=== PATIENT | male | born 2000 | race Caucasian/White ===

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

== ENCOUNTER 2022-02-17 14:39 | Outpatient (CLI) | payer OTHER, SELFPAY ==
--- NOTE | 2022-03-05 13:57 | WPDPFTINT ---
PFT Procedure Performed PFT Procedure Performed Spirometry with Pre/Post Bronchodilator Plethysmography (Lung Vol) Diffusing Cap (DLCO) Flow Vol Loop PFT Interpretation DOS: 02/17/2022 REQUESTING: Amelia Goss NP REASON FOR TESTING: Moderate persistent asthma PULMONARY FUNCTION TESTS Results are reliable and reproducible. Spirometry: Pre-bronchodilator FEV1 is 79% predicted, 3.9 L, mildly reduced. Pre-bronchodilator FVC is 86%, 5 L, normal. FEV1/FVC is 78%, normal. WRE60-38% is 68% predicted, 3.58 L, within normal range. After bronchodilator administration, FEV1 increases by 3%, 81% predicted, 4.01 L, normal. FVC increases 2%, 88% predicted, 5.11 L. Normal. FEV1/FVC is 78%, no change. EOX03-72 increases by 4%, 70% predicted, 3.72 L normal. Lung volumes: Total lung capacity is 109% predicted, 6.27 L normal. FRC is 107% predicted, 2.9 L normal. ERV 55%, 1.08 L, below normal. The BMI is 24.16, normal. Residual volume 85%, 0.99 L. RV/TLC is 16%. Airway resistance is 300%, 3.19 cmH20/L/sec, increased. Diffusion: DLCO 94% predicted, 36.2 mL/minute/mmHg. DLCO/VA is 112%, 6.03 mL/min/mmHg. These are normal values. Flow volume loop: Normal expiratory limb. There is flattening of the inspiratory limb which is reproducible. This is consistent with a variable extrathoracic obstruction. IMPRESSION: Normal spirometry, normal lung volumes and normal diffusion. Most significant finding is a flattened inspiratory limb which suggests a dynamic extrathoracic obstruction such as vocal cord paralysis, upper airway mobile tumor, or extrathoracic tracheomalacia. Consider dynamic neck CT scan or ENT evaluation. Estela Valdez MD
== END 2022-02-17 14:40 | disposition home or self-care (01) ==
LOC: ANHPFT 14:44
PROVIDERS: PCP Internal Medicine; Visit Provider Nurse Practitioner
DX: J45.50 Severe persistent asthma, uncomplicated (principal)
CPT/HCPCS: 94060; 94726; 94729

== ENCOUNTER 2023-02-08 09:36 | Emergency (ER) | payer OTHER, SELFPAY ==
--- NOTE | ~2023-02-08 | XR_ITS ---
EXAMINATION: XR chest 2V DATE: 02/08/2023 10:38 INDICATION: Shortness of breath and asthma TECHNIQUE: Frontal and lateral views of the chest are obtained COMPARISON: 06/05/2007 FINDINGS: The lungs are free of acute opacities. No pleural effusion or pneumothorax. The cardiomedia stinal silhouette is normal. The visualized bones and soft tissues are unremarkable. IMPRESSION: 1. No acute cardiopulmonary abnormality. Reviewed, dictated and finalized at location A.
[2023-02-08 09:58] VITALS: BP 142/94; PULSE 82; RESP 16; TEMP 36.1; O2SAT 98
--- NOTE | 2023-02-08 10:25 | ED.URI ---
HPI - URI/Sore Throat General Chief Complaint: Upper Respiratory Infection Stated Complaint: SOB/WHEEZING/COUGH/ASHTMA Time Seen by Provider: 02/08/23 10:25 Source: patient, RN notes reviewed and old records reviewed Mode of arrival: ambulatory Limitations: no limitations History of Present Illness HPI Narrative: 22-year-old male presents to the [facility] with complaints of cough, shortness of breath, wheezing. Has a history of asthma. Symptoms x2 days. Symptoms got worse yesterday. Has a history of asthma and has been using his albuterol inhaler ?way too much. ? Related Data Allergies Allergy/AdvReac Type Severity Reaction Status Date / Time No Known Allergies Allergy Verified 02/08/23 11:33 Review of Systems Review of Systems: All systems reviewed & are unremarkable except as noted in HPI and below Constitutional: Constitutional: Reports no additional constitutional complaints Eyes: Eyes: Reports no additional eye complaints ENT: Reports system reviewed and no additional complaints, except as documented Cardiovascular: Cardiovascular: Reports no additional cardiovascular complaints, Denies chest pain and Denies dyspnea Respiratory: Respiratory: Reports as per HPI, Reports chest congestion, Reports cough and Reports dyspnea Gastrointestinal: Gastrointestinal: Reports no additional gastrointestinal complaints, Denies abdominal pain, Denies nausea and Denies vomiting Musculoskeletal: Musculoskeletal: Reports no additional musculoskeletal complaints Integumentary/Breasts: Skin/Breast: Reports system reviewed and no additional complaints, except as docu Neurologic: Reports system reviewed and no additional complaints, except as documented Psychiatric: Psychiatric: Reports no additional psychiatric complaints Allergic/Immunologic: Allergic/Immunologic: Reports no additional allergic/immunologic complaints [facility] Past Medical History Medical History Asthma Asthma History of COVID-19 Social History Social History Smoking status: Never smoker Alcohol intake: current Substance use: never Lack of Transportation: No Lack of Food: Never True Current Housing: I Have Housing Concerned About Future Housing: No Difficulty Paying Gas/Electric Bills: No Difficulty Paying for Meds: No Currently Unemployed: No Education: Trade/Vocational Certificate Difficulty w/ Childcare or Family Care: No Living arrangements: with family Occupation/Education: student Additional occupation/education comments: Senior at [employer] Comments At the time of my signature, I reviewed and agree with the nursing past medical, surgical, social, and family history. There is no relevant family history pertinent to the patient complaint. Exam Const: General: cooperative, healthy appearing, comfortable, no acute distress, well developed, alert and well nourished Nutritional Appearance: well nourished Orientation/consciousness: patient oriented x3 Limitations: no limitations HENMT: Head: normal to inspection Ears: hearing grossly normal bilaterally and external ears normal Face/Nose/Sinus: Normal external nose present, Normal nares present, Normal nasal mucous membranes and turbinates present and normal facial exam Face and sinus: normal facial exam Mouth: Yes Normal oral and palatal mucosa present, Yes lip normal and Yes moist mucous membranes Throat: posterior oropharynx normal and uvula midline Eyes: General: appearance normal, both eyes and all related structures Alignment and Position: alignment normal Periorbital: periorbital findings normal Pupils: Equal, round and reactive pupils present EOM: EOMs intact bilaterally Neck: Neck: normal visual inspection, full ROM, no lymphadenopathy and no meningeal signs Chest: Chest palpation & inspection: normal inspection of the chest Resp: Eff
[2023-02-08] MEDS: ALBUTEROL SULFATE NEB 2.5 MG/3 ML INH INHALATION (10:44)
[2023-02-08] MEDS: IPRATROPIUM BR 0.02% INH SOLN 0.5 MG/2.5 ML VIAL INHALATION (10:45)
== END 2023-02-08 11:40 | disposition home or self-care (01) ==
PROVIDERS: Emergency Provider Nurse Practitioner; PCP Nurse Practitioner
DX: J45.909 Unspecified asthma, uncomplicated (principal); Z86.16 Personal history of COVID-19
CPT/HCPCS: 71046; 94640; 99213; G0463

== ENCOUNTER 2023-02-09 00:02 | Emergency (ER) | payer OTHER, SELFPAY ==
--- NOTE | ~2023-02-09 | XR_ITS ---
Clinical Indication: Dyspnea PA and lateral views of the chest: Comparison: 02/08/2023 Findings: There is focal retrocardiac airspace disease. Right lung clear.. Cardiomediastinal silhoue tte is within normal limits. Bones and soft tissues are unremarkable. Impression: Focal retrocardiac airspace disease could reflect left lower lobe atelectasis versus focal pneumonia. Reviewed, dictated and finalized at location . Impression: Focal retrocardiac airspace disease could reflect left lower lobe atelectasis v ersus focal pneumonia.
[2023-02-09 00:05] VITALS: BP 154/90; PULSE 112; RESP 15; TEMP 36.9; O2SAT 98
--- NOTE | 2023-02-09 00:13 | ECG_ITS ---
Measurements Intervals [place] Rate: 101 P: 69 WA: 159 QRS: 46 QRSD: 99 T: 38 QT: 335 QTc: 435 Interpretive Statements SINUS TACHYCARDIA POSSIBLE LEFT ATRIAL ENLARGEMENT BORDERLINE ECG NO PREVIOUS ECG AVAILABLE FOR COMPARISON Electronically Signed On 02-09-2023 6:38:10 CDT by Koby Christopher D.O.
[2023-02-09 00:24] VITALS: PULSE 102; O2SAT 100
--- NOTE | 2023-02-09 00:31 | ED.SOB ---
HPI - SOB/Dyspnea General Chief Complaint: Shortness of Breath/Dyspnea <Letitia Boucher PA-C - Last Filed: 02/09/23 02:32> Stated Complaint: shortness of breath <Letitia Boucher PA-C - Last Filed: 02/09/23 02:32> Time Seen by Provider: 02/09/23 00:14 <Letitia Boucher PA-C - Last Filed: 02/09/23 02:32> History of Present Illness HPI Narrative: 22 y/o M with a history of asthma reports for evaluation of shortness of breath that started yesterday. Patient states this is asthma exacerbation with associated wheezing. States he went urgent care this morning at 9 AM, received a nebulizer treatment with improvement and sent home with 60 mg p.o. prednisone daily. States he took 60 mg of prednisone at 2 P with some improvement in his dyspnea, but came to the ED today due to generalized pleuritic chest pain that started 30 minutes ago. He has taken his albuterol rescue inhaler multiple times today without relief. He states approximately half a month ago, he was started on Qvar daily in addition to his albuterol. States his asthma is managed by his PCP. He does report a productive cough for the past 2 days. Denies fever, body aches or chills, abdominal pain, nausea or vomiting. <Letitia Boucher PA-C - Last Filed: 02/09/23 02:32> Related Data Allergies/Adverse Reactions: Allergies Allergy/AdvReac Type Severity Reaction Status Date / Time No Known Allergies Allergy Verified 02/08/23 11:33 <Letitia Boucher PA-C - Last Filed: 02/09/23 02:32> Review of Systems Review of Systems: CONSTITUTIONAL: Denies fever, chills EYES: Denies visual changes, redness, or discharge. ENT: Denies rhinorrhea, congestion, sore throat, or otalgia. CARDIOVASCULAR: See HPI RESPIRATORY: See HPI GASTROINTESTINAL: Denies abdominal pain, nausea, vomiting, or diarrhea. GENITOURINARY: Denies dysuria or hematuria. SKIN: Denies rash or itching. MUSCULOSKELETAL: Denies back pain, joint pain, or myalgia. NEUROLOGIC: Denies headache, numbness, dizziness, or weakness. PSYCHIATRIC: Denies anxiety or depression. <Letitia Boucher PA-C - Last Filed: 02/09/23 02:32> [facility] Past Medical History Medical History: Medical History Asthma Asthma History of COVID-19 <Letitia Boucher PA-C - Last Filed: 02/09/23 02:32> Social History Social History: Social History Smoking status: Never smoker Alcohol intake: current Substance use: never Lack of Transportation: No Lack of Food: Never True Current Housing: I Have Housing Concerned About Future Housing: No Difficulty Paying Gas/Electric Bills: No Difficulty Paying for Meds: No Currently Unemployed: No Education: Trade/Vocational Certificate Difficulty w/ Childcare or Family Care: No Living arrangements: with family Occupation/Education: student Additional occupation/education comments: Senior at [employer] <Letitia Boucher PA-C - Last Filed: 02/09/23 02:32> Exam Narrative: GENERAL: Well-appearing, in no acute distress. HEAD: Normocephalic EYES: PERRLA ENT: Nares clear. Mucous membranes moist. Oropharynx without tonsillar hypertrophy exudate or other lesions. NECK: Supple. CHEST: Wheezing and rhonchi throughout all lung hale. HEART: Regular rate and rhythm. No murmur heard. Normal peripheral pulses. ABDOMEN: Soft, nontender, normal active bowel sounds. EXTREMITIES: Normal range of motion. No edema. SKIN: Warm, dry, no rash. NEURO: No focal deficits. Alert and oriented x3. PSYCH: Normal mood and affect. <Letitia Boucher PA-C - Last Filed: 02/09/23 02:32> Course [employer]IPE [employer]ER/PA Physician Supervision This is a was performed by both a physician and an APC. I performed all aspects of the MDM as documented w/ the following additions: 22-year-old presenting with asthma exacerbation. Improved a
[2023-02-09 00:35] VITALS: PULSE 100; RESP 26
[2023-02-09] MEDS: IPRATROPIUM BR 0.02% INH SOLN 0.5 MG/2.5 ML VIAL INHALATION ×3 (00:35→01:19)
[2023-02-09] MEDS: ALBUTEROL SULFATE NEB 2.5 MG/3 ML INH INHALATION ×3 (00:35→01:19)
[2023-02-09] MEDS: MAGNESIUM SULF 2 GM/WATER 50ML 2 GM/50 ML BAG IVPB (00:43)
[2023-02-09] MEDS: SODIUM CHLORIDE 0.9% IV 1,000 ML 999 ML IV CONT (00:43)
[2023-02-09 00:51] LABS: Basophils Percent Auto 0.1 % (0.2-1.2); Hematocrit 48.9 % (42.0-52.0); Hemoglobin 16.5 g/dL (14.0-18.0); Immature Granulocyte Percent A 0.7 % (0-0.5); Lymphocytes Absolute Auto 0.96 K/mm3 (0.9-3.2); Lymphocytes Percent Auto 7.1 % (18.3-44.2); Mean Corpuscular HGB Conc 33.7 g/dl (32-36); Mean Corpuscular Hemoglobin 30.7 pg (26-34); Mean Corpuscular Volume 91.1 fl (80-100); Mean Platelet Volume 10.4 fl (7.4-10.4); Monocytes Absolute Auto 0.8 K/mm3 (0.1-0.6); Neutrophils Absolute Auto 11.7 K/mm3 (1.3-6.7); Neutrophils Percent Auto 86.1 % (45.5-73.1); Platelet Count Result 213 k/mm3 (150-375); Red Blood Count 5.37 M/mm3 (4.6-6.20); Red Cell Distribution Width 12.9 % (11.5-14.5); White Blood Count 13.6 K/mm3 (4.5-10.0)
[2023-02-09 01:09] VITALS: PULSE 95; RESP 12; O2SAT 100
[2023-02-09 01:27] LABS: Alanine Aminotransferase 27 U/L (6-50); Albumin Level 4.2 g/dL (3.5-5.1); Alkaline Phosphatase 73 U/L (38-126); Anion Gap 7 mmol/L (8-16); Aspartate Amino Transferase 25 U/L (17-59); Bilirubin,Total 0.8 mg/dL (0.2-1.3); Blood Urea Nitrogen 14 mg/dL (9-20); Carbon Dioxide 26 mmol/L (22-30); Chloride 105 mmol/L (98-107); Estimated CRCL calculation 150 ml/min; Estimated Glomerular Filt Rate > 60; Glucose 121 mg/dL (65-110); Potassium 3.9 mmol/L (3.4-5.0); Sodium 138 mmol/L (137-145)
[2023-02-09 01:45] VITALS: PULSE 89; RESP 21
[2023-02-09 02:42] VITALS: BP 164/94; PULSE 92; RESP 15; O2SAT 97
== END 2023-02-09 02:43 | disposition home or self-care (01) ==
PROVIDERS: Emergency Provider Physician Assistant; PCP Nurse Practitioner
DX: J45.901 Unspecified asthma with (acute) exacerbation (principal); Z86.16 Personal history of COVID-19; R94.31 Abnormal electrocardiogram [ECG] [EKG]; R00.0 Tachycardia, unspecified
CPT/HCPCS: 36415; 71046; 80053; 85025; 93005; 94640; 96365; 96375; 99284; J1100; J3475; J7030

== ENCOUNTER 2023-05-05 09:54 | Emergency (ER) | payer OTHER, SELFPAY ==
[2023-05-05 10:05] VITALS: BP 135/93; PULSE 73; RESP 16; TEMP 36.8; O2SAT 100
--- NOTE | 2023-05-05 10:19 | ED.NAVMDI ---
HPI - Nausea/Vomiting/Diarrhea General Chief complaint: Nausea/Vomiting/Diarrhea Stated complaint: BLOOD IN STOOL Source: patient and RN notes reviewed Mode of arrival: ambulatory Limitations: no limitations History of Present Illness HPI Narrative: 22-year-old male presented for complaint of bright red blood per rectum for at least 2 months. States bleeding only occurs during bowel movements, and has noticed the blood on the toilet tissue. However, yesterday he noticed large amount of blood in the toilet bowl. Denies any external hemorrhoids, abdominal pain, n/v/d/constipation, f/c. Denies fatigue or weight loss. Reports occasional heavy lifting for work. Not taking anything for symptoms. Related Data Allergies Allergy/AdvReac Type Severity Reaction Status Date / Time No Known Allergies Allergy Verified 05/05/23 10:04 Review of Systems Review of Systems: CONSTITUTIONAL: Denies body aches, fever, chills ENT: Denies rhinorrhea, congestion CARDIOVASCULAR: Denies chest pain, palpitations, or edema. RESPIRATORY: Denies cough or dyspnea. GASTROINTESTINAL: Endorses rectal bleeding; denies abdominal pain, nausea, vomiting, diarrhea, melena GENITOURINARY: Denies dysuria, hematuria, or CVA tenderness. SKIN: Denies rash, itching, or wounds. MUSCULOSKELETAL: Denies back pain, joint pain, or myalgia. NEUROLOGIC: Denies headache, numbness, tingling, or weakness. All systems reviewed & are unremarkable except as noted in HPI and below PMFSH Past Medical History Medical History Asthma Asthma History of COVID-19 Social History Social History Smoking status: Never smoker Alcohol intake: current Substance use: never Lack of Transportation: No Lack of Food: Never True Current Housing: I Have Housing Concerned About Future Housing: No Difficulty Paying Gas/Electric Bills: No Difficulty Paying for Meds: No Currently Unemployed: No Education: Trade/Vocational Certificate Difficulty w/ Childcare or Family Care: No Living arrangements: with family Occupation/Education: student Additional occupation/education comments: Senior at [employer] Comments At time of signature, I have reviewed and agree with nursing past medical, surgical, social and family history unless otherwise noted. Please see nursing chart for further information. There is no relevant family history pertinent to the presenting complaint Exam Narrative: GENERAL: Well-appearing, and in no acute distress. EYES: EOMI. Conjunctivae normal. ENT: Mucous membranes pink and moist. CHEST: No respiratory distress. Clear to auscultation. HEART: Regular rate and rhythm. No murmur appreciated. Normal peripheral pulses. ABDOMEN: abd soft, nondistended, normal active bowel sounds. Nontender abdomen, No guarding, rebound tenderness, asymmetry.No External hemorrhoids or active bleeding. EXTREMITIES: Normal range of motion. No edema. SKIN: Warm, dry, no rash. Capillary refill normal. Normal skin turgor. NEURO: No focal deficits. Alert and oriented x3. PSYCH: Normal affect. Course Course Emergency Course: Patient is aware of diagnosis, understands and agrees to treatment plan. Anticipatory guidance given. Patient agrees to follow-up as directed and is aware of reasons to seek care at the emergency department. Portions of this record may have been created with voice recognition software Level of Care: Express Care Visit Vital Signs Vital signs: Vital Signs Temperature 98.2 F 05/05/23 10:05 Pulse Rate 73 05/05/23 10:05 Respiratory Rate 16 05/05/23 10:05 Blood Pressure 135/93 H 05/05/23 10:05 Pulse Oximetry 100 05/05/23 10:05 Oxygen Delivery Room Air 05/05/23 10:05 Temperature 98.2 F 05/05/23 10:05 Pulse Rate 73 05/05/23 10:05 Respiratory Rate 16 05/05/23 10:05 Blood Pressur
== END 2023-05-05 10:46 | disposition home or self-care (01) ==
PROVIDERS: Emergency Provider Nurse Practitioner Family; PCP Nurse Practitioner
DX: K62.5 Hemorrhage of anus and rectum (principal)
CPT/HCPCS: 99213; G0463